=== PATIENT | female | born 1970 | race Caucasian/White ===

== ENCOUNTER 2020-06-04 09:52 | Outpatient (CLI) | payer MEDICARE, SELFPAY ==
--- NOTE | 2020-06-04 09:50 | CT_ITS ---
WS: [id number] CT ABDOMEN PELVIS TECHNIQUE: Contrast-enhanced CT of the abdomen and pelvis with coronal and sagittal reformatted image s. CLINICAL INFORMATION: LLQ PAIN, WEIGHT LOSS COMPARISON: 8 ,019 DLP: 1200.[address] scans at [facility] use at least one of these dose optimization techniques: automat ed exposure control; mA and/or kV adjustment per patient size (includes targeted exams where dose is matched to clinical indication); or iterative reconstruction. FINDINGS: Mild diffuse fatty infiltration of the liver. Hepatomegaly. Normal gallbladder. Adrenal glands are no rmal. Normal renal parenchymal enhancement. No hydronephrosis. Tiny right renal cyst. Lung bases are well aerated. Normal GE junction. Normal spleen. Small splenule. Normal pancreas. Normal portal vein and splenic vein. Normal caliber abdominal aorta. Normal small and large bowel. No evidence of high-grade obstruction. Sigmoid diverticulosis. No evide nce of acute diverticulitis. No pelvic or inguinal lymphadenopathy. Disc space narrowing worse L5-S1. Slight anterolisthesis L4 on L5. CT/CT abdomen pelvis w con* [id number] IMPRESSION: 1. Hepatomegaly with diffuse infiltration. 2. Normal renal parenchymal enhancement. No hydronephrosis. 3. Normal caliber abdominal aorta. 4. No abdominal or pelvic lymphadenopathy. 5. . Hysterectomy. 6. Sigmoid diverticulosis. No evidence of acute diverticulitis.
[2020-06-04] MEDS: iohexol 300 mg/mL 50 mL Btl PO (10:09)
[2020-06-04] MEDS: iohexol 300 mg/mL 100 mL Btl IV (11:35)
== END 2020-06-04 09:53 | disposition home or self-care (01) ==
LOC: RADWPI 09:56
PROVIDERS: PCP Nurse Practitioner Family; Visit Provider Nurse Practitioner Family
DX: R10.32 Left lower quadrant pain (principal); R16.0 Hepatomegaly, not elsewhere classified; K76.0 Fatty (change of) liver, not elsewhere classified; K57.90 Diverticulosis of intestine, part unspecified, without perforation or abscess without bleeding
CPT/HCPCS: 74177; Q9967

== ENCOUNTER 2022-07-07 02:07 | Emergency (ER) | payer MEDICARE, SELFPAY ==
[2022-07-07 02:32] VITALS: BP 124/80; PULSE 108; RESP 20; TEMP 36; O2SAT 97; BMI 28.3
[2022-07-07 02:36] VITALS: BP 106/72; PULSE 114; RESP 15; O2SAT 98
[2022-07-07] MEDS: metoclopramide 5 mg/mL SDV 2 mL 10 MG IVP (03:25)
[2022-07-07] MEDS: dexamethasone 4 mg/mL INJ 8 MG IVP (03:25)
[2022-07-07] MEDS: ketorolac 30 mg/mL INJ 15 MG IVP (03:27)
[2022-07-07] MEDS: fentaNYL 50 mcg/mL INJ 2mL IVP (03:29)
[2022-07-07] MEDS: sodium chloride 0.9% 1,000 ML 999 ML IV (03:30)
--- NOTE | 2022-07-07 03:47 | ED_ITS ---
HPI - Headache General: Chief Complaint: Headache Stated Complaint: N/V/D, Headache Time Seen by Provider: 07/07/22 02:50 Source: patient and family History of Present Illness: 51-year-old female with a 20-year history of migraines, although she notes she has not had 1 in 2 years or so. She presents with a headache that started around 11:00 yesterday morning. She has vomited a few times. She denies blurry vision, but is photophobic. She had 2 episodes of diarrhea. She states that diarrhea is not uncommon for her. No weakness, trouble with language, vision as above, etc. she has been under a lot of stress she says, which is not usual for her. MD elicited complaint: headache and migraine Onset (ago): hour(s) Onset description: gradually Location: diffuse Quality & Timing: aching and throbbing Context: occurred at rest Associated symptoms: Reports lightheadedness, nausea, photophobia and vomiting; Deny chest pain, confusion, cough, fever(s), loss of vision, neck stiffness or numbness Review of Systems Const: Denies: fever(s) Card: Reports: lightheadedness; Denies: chest pain Resp: Denies: dyspnea, productive cough or non-productive cough GI: Reports: nausea and vomiting; Denies: abdominal pain Neuro: Denies: confusion Physical Exam Const: COMMON NORMALS: alert GENERAL APPEARANCE: cooperative and frail appearing ORIENTATION/CONSCIOUSNESS: Yes oriented to person and Yes oriented to place HENMT: COMMON NORMALS: normocephalic, atraumatic and Normal external nose present HEAD & SCALP: normocephalic and atraumatic FACE & SINUS: normal facial exam and face symmetric NOSE: Normal external nose present Eye: COMMON NORMALS: Equal, round and reactive pupils present and EOMs intact bilaterally PUPIL: Yes Equal, round and reactive pupils present DIRECT OPHTHALMOSCOPY: Yes photophobia Chest: CHEST: Yes Symmetrical chest wall rise Resp: COMMON NORMALS: normal respiratory effort, No use of accessory muscles and clear to auscultation bilaterally AUSCULTATION: clear to auscultation bilaterally Cardio: COMMON NORMALS: regular rate and regular rhythm RATE: regular rate RHYTHM: regular rhythm GI: COMMON NORMALS: Normal to inspection, nondistended, normoactive bowel sounds present and Soft to palpation PALPATION: Yes Soft to palpation Extremity: COMMON NORMALS: no pedal edema Neuro: CHRISTIANNE COMA SCALE: document GCS findings Christianne coma scale eye opening: Spontaneous Christianne coma scale verbal response: Orientated Christianne coma scale motor response: Obey commands [place] coma scale total score: 15 SENSORIUM/ORIENTATION: Yes alert, Yes oriented to person and Yes oriented to place CRANIAL NERVES: Yes CN normal except as noted COORDINATION/BALANCE: [id number]-[id number] test normal and [id number] test normal SPEECH: speech normal SENSORY EXAM: Yes extremities (intact) MOTOR EXAM: Pronator motor function not present COORDINATION: [id number] test normal and [id number]-tl-[id number] test normal Psych: COMMON NORMALS: mental status grossly normal and cooperative Course Vital Signs: Vital signs: Vital Signs Temperature 96.8 F L 07/07/22 02:32 Pulse Rate 114 H 07/07/22 02:36 Respiratory Rate 15 07/07/22 02:36 Blood Pressure 106/72 07/07/22 02:36 Pulse Oximetry 98 07/07/22 02:36 Oxygen Delivery Me thod 07/07/22 02:32 MDM - Headache Medical Decision Making Headache is improved following administration of IV fluids and medication. No neurological deficit symptoms. Her blood pressure is 121/78. Discharge Plan Discharge Patient Disposition: Home Clinical Impression: Migraine Condition: Stable Discharge Orders: Discharge ED (Routine); Ordered 07/07/22 Ordered By: Davin Tejada Referrals: Jamee Zepeda FNP [Primary Care Provider] - Patient Instructions: Migraine Headache (ED) Coding Level of Care Code ED Urology Teacher for Chg Fwd Exam Comprehensive
[2022-07-07 04:30] VITALS: BP 103/66; PULSE 90; RESP 15; O2SAT 98
== END 2022-07-07 04:50 | disposition home or self-care (01) ==
PROVIDERS: Emergency Provider Emergency Medicine; PCP Nurse Practitioner Family
DX: G43.909 Migraine, unspecified, not intractable, without status migrainosus (principal)
CPT/HCPCS: 96361; 96374; 96375; 99284; J1100; J1885; J2765; J3010; J7030

== ENCOUNTER → 2024-08-04 11:00 | Outpatient (BNVA) | payer MEDICARE, SELFPAY | PROVIDERS: PCP Nurse Practitioner Family; Referring Provider Nurse Practitioner Family; Visit Provider Internal Medicine | DX: E78.2 Mixed hyperlipidemia; E11.69 Type 2 diabetes mellitus with other specified complication; Z79.4 Long term (current) use of insulin | CPT/HCPCS: 36415; 80053; 84681; 86337; 86341; 99204 ==

== ENCOUNTER → 2025-01-25 08:35 | Outpatient (BNVA) | payer MEDICARE, SELFPAY | PROVIDERS: PCP Nurse Practitioner Family; Visit Provider Internal Medicine | DX: E11.9 Type 2 diabetes mellitus without complications (principal); E78.2 Mixed hyperlipidemia | CPT/HCPCS: 36415; 80053; 80061; 82044; 83036; 99214 ==

== ENCOUNTER → 2025-05-16 09:34 | Outpatient (BNVA) | payer MEDICARE, SELFPAY | PROVIDERS: PCP Nurse Practitioner Family; Visit Provider Internal Medicine | DX: E11.9 Type 2 diabetes mellitus without complications (principal); E78.2 Mixed hyperlipidemia | CPT/HCPCS: 36415; 80053; 80061; 82044; 83036; 99214 ==